=== PATIENT | female | born 1995 | race Caucasian/White ===

== ENCOUNTER 2021-09-20 19:02 | Emergency (ER) | payer BC ==
[2021-09-20] MEDS ORDERED: Proparacaine 0.5% Ophth Soln 15 ML Bottle EYERT STA (19:27)
[2021-09-20] MEDS ORDERED: Fluorescein 1 MG Ophth Strip EYERT STA (19:28)
[2021-09-20] MEDS ORDERED: Erythromycin Base 0.5% Ophth Oint 1 GM Tube EYERT STA (19:43)
== END 2021-09-20 19:53 | disposition home or self-care (01) ==
LOC: JD.ED 19:02
DX: T52.8X1A Toxic effect of other organic solvents, accidental (unintentional), initial encounter (principal); T26.61XA Corrosion of cornea and conjunctival sac, right eye, initial encounter
CPT/HCPCS: 99283; A9270